=== PATIENT | male | born 1965 | race Caucasian/White ===

== ENCOUNTER 2023-05-12 12:40 | Outpatient (REF) | payer MEDICAID, SELFPAY ==
[2023-05-12 17:07] LABS: CT PCR NOT DETECTED (Not Detect.); NG PCR NOT DETECTED (Not Detect.)
== END 2023-05-12 12:41 | disposition home or self-care (01) ==
LOC: HO.HHCL 12:40
PROVIDERS: Visit Provider Registered Nurse
DX: Z00.00 Encounter for general adult medical examination without abnormal findings (principal); Z11.3 Encounter for screening for infections with a predominantly sexual mode of transmission
CPT/HCPCS: 0353U

== ENCOUNTER → 2024-10-02 08:46 | Outpatient (BNVA) | payer OTHER, SELFPAY | PROVIDERS: Visit Provider Physician Assistant | DX: S62.605A Fracture of unspecified phalanx of left ring finger, initial encounter for closed fracture (principal); W31.9XXA Contact with unspecified machinery, initial encounter | CPT/HCPCS: 29130; 73140; 99204 ==

== ENCOUNTER → 2024-10-08 12:04 | Outpatient (BNVA) | payer OTHER, SELFPAY | PROVIDERS: Visit Provider Registered Nurse | DX: S62.605A Fracture of unspecified phalanx of left ring finger, initial encounter for closed fracture (principal); W31.9XXA Contact with unspecified machinery, initial encounter | CPT/HCPCS: 99213 ==